=== PATIENT | male | born 1990 | race Caucasian/White ===

== ENCOUNTER → 2021-03-12 | Outpatient (CLI) | payer OTHER | LOC: KOH-I 13:28 | DX: M25.512 Pain in left shoulder (principal) | CPT/HCPCS: 73000; 73030; 73060 ==

== ENCOUNTER 2021-07-02 22:28 | Emergency (ER) | payer OTHER ==
[~2021-07-02 22:28] MED LIST: BACLOFEN5 MG PO; BACTRIM DS TAB1 EACH PO; BUPRENORPHIN-N1 EACH SL; KENALOG CREAM 015 GM TOP; MAVYRET PO; NALOXONE HCL4 MG
== END 2021-07-03 02:58 | disposition home or self-care (01) ==
LOC: ER1 22:28
DX: T15.91XA Foreign body on external eye, part unspecified, right eye, initial encounter (principal); Z23 Encounter for immunization; F17.210 Nicotine dependence, cigarettes, uncomplicated; X58.XXXA Exposure to other specified factors, initial encounter
CPT/HCPCS: 90471; 90715; 99282